=== PATIENT | female | born 2000 | race Caucasian/White ===

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

== ENCOUNTER 2019-01-10 09:28 | Emergency (ER) | payer OTHER ==
[~2019-01-10] VITALS: Ht 149.9 cm; Wt 64.3 kg
[~2019-01-10 09:28] MED LIST changes: -AMO500 PO; -AMOX1TAB10 PO; -HYDR-906 PO; -IBUP-1542 PO; -IBUP100O10 PO; -NAPR-688 PO; -NPH10OT RIGHT EAR; +PNV11TAB PO
[2019-01-10 09:38] VITALS: BP 116/69; PULSE 71; RESP 18; Ht 149.9 cm; Wt 64.3 kg
[2019-01-10] MEDS ORDERED: BACITRACIN 0.9 GM OINT TOP ONE (10:30)
[2019-01-10] MEDS ORDERED: LIDOCAINE 1% (MDV) 20 ML INJ SC ONE (11:00)
[2019-01-10] MEDS ORDERED: HYDR-4011 PO (12:00)
--- NOTE | 2019-01-10 16:11 | ERD ---
ER Documentation Chief Complaint Chief Complaint BILATERAL INGROWN NAIL FOR 3 DAYS. HPI 18-year-old female presents with complaint of bilateral groin times the past 3 days. States that the pain is made worse with palpation and ambulation. Denies any infections. Denies any treatments. Denies any fevers, chills. ROS All systems reviewed and are negative except as per history of present illness. Medications Home Meds Active Scripts Hydrocodone/Acetaminophen ([place] 5-325 Tablet) 1 Each Tablet, 1 TAB PO Q6H PRN for PAIN, #10 TAB Prov:CHERELLE MUELLER 01/10/19 Reported Medications [id number] ( 18) 1 Each Tablet, 1 TAB PO DAILY, TAB 10/03/18 Allergies Allergies: Coded Allergies: No Known Drug Allergies (Verified Allergy, Unknown, 05/20/16) PMhx/Soc History of Surgery: Yes (TONSILECTOMY ) Anesthesia Reaction: No Hx Neurological Disorder: No Hx Respiratory Disorders: No Hx Cardiac Disorders: No Hx Psychiatric Problems: No Hx Miscellaneous Medical Probl: Yes (peritonsilar abscess to R tonsil) Hx Alcohol Use: No Hx Substance Use: No Hx Tobacco Use: No FmHx Family History: No diabetes, No coronary disease, No other Physical Exam Vitals Vital Signs Date Temp Pulse Resp B/P (MAP) Pulse Ox O2 O2 Flow FiO2 Time Delivery Rate 01/10/19 97.7 71 18 116/69 99 09:38 (85) Physical Exam Const: No acute distress Head: Atraumatic Eyes: Normal Conjunctiva ENT: Normal External Ears, Nose and Mouth. Neck: Full range of motion. No meningismus. Resp: Clear to auscultation bilaterally Cardio: Regular rate and rhythm, no murmurs Abd: Soft, non tender, non distended. Normal bowel sounds Skin: Ingrown toenails noted bilaterally on the first digits of each foot. There is no erythema or signs of infection noted. Back: No midline or flank tenderness Ext: No cyanosis, or edema Neur: Awake and alert Psych: Normal Mood and Affect Results 24 hrs Current Medications Medications Dose Sig/Gigi Start Time Status Last (Trade) Ordered Route PRN Stop Time Admin Dose Reason Admin Bacitracin 1 applic ONCE ONCE 01/10/19 DC 01/10/19 (Bacitracin TOP 10:30 10:37 Oint (Ud)) 01/10/19 10:31 Lidocaine 20 ml ONCE ONCE 01/10/19 DC (Xylocaine SC 11:00 1% (Mdv) 20 01/10/19 11:01 ml) Procedures/MDM Toenail Removal by me: Anesthesia: 1% lidocaine Digital Block Location: First digit bilaterally Technique: from nail bed, vertical split, twisting towards remaining nail. Packing: Non-adherent dressing applied Complications: None Recommend bid dressing changes and warm water soaks. MDM: Toenails were removed bilaterally with above technique. Patient not exhibiting signs of infection therefore antibiotics were not necessary. I have low suspicion for acute space infection, cellulitis, or any other emergent condition. At this time, patient is stable for discharge and outpatient management. I have instructed the patient to follow-up with his/her primary care physician in 1-2 days. I have discussed with the patient the possibility of needing to see a specialist for further workup and imaging studies if symptoms persist. I have instructed the patient to promptly return to the ER for any new or worsening symptoms including but not limited to increased pain, fever, nausea, vomiting, weakness or LOC. The patient and/or family expressed understanding of and agreement with this plan. All questions were answered. Home care instructions were provided. [Communication with patient both during the exam and instructions for discharge were performed with using a filling hauler . Patient gave verbal confirmation to the practitioner, through the filling hauler, that they understood everythign that was being said to them.] DISCLAIMER: Inadvertent spelling and grammatical errors are likely due to EHR/dictation software use and do not reflect on the overall quality of patient care. Also, please note that the electronic time recorded on this note does not necessarily reflect the actual time of the patient encounter. Departure Diagnosis: Primary Impression: Ingrown toenail Condition: Stable Patient Instructions: Understanding Ingrown Toenails, Ingrown Toenail, Excised Referrals: [facility] YOU HAVE RECEIVED A MEDICAL SCREENING EXAM AND THE RESULTS INDICATE THAT YOU DO NOT HAVE A CONDITION THAT REQUIRES URGENT TREATMENT IN THE EMERGENCY DEPARTMENT. FURTHER EVALUATION AND TREATMENT OF YOUR CONDITION CAN WAIT UNTIL YOU ARE SEEN IN YOUR DOCTORS OFFICE WITHIN THE NEXT 1-2 DAYS. IT IS YOUR RESPONSIBILITY TO MAKE AN APPOINTMENT FOR FOLOW-UP CARE. IF YOU HAVE A PRIMARY DOCTOR --you should call your primary doctor and schedule an appointment IF YOU DO NOT HAVE A PRIMARY DOCTOR YOU CAN CALL OUR PHYSICIAN REFERRAL HOTLINE AT IF YOU CAN NOT AFFORD TO SEE A PHYSICIAN YOU CAN CHOSE FROM THE FOLLOWING [facility] [address] [facility] [address] [facility] [address] [facility] [address] [facility] [address] [facility] [facility]. [address] Additional Instructions: FOLLOW UP WITH YOUR PRIMARY CARE PHYSICIAN TOMORROW.Return to this facility if you are not improving as expected. CHERELLE MUELLER Jan 10, 2019 16:11
== END 2019-01-10 12:11 | disposition home or self-care (01) ==
LOC: FTE 09:28
DX: L60.0 Ingrowing nail (principal)
CPT/HCPCS: 11750; L3260; Z7502; Z7610

== ENCOUNTER 2019-03-02 11:54 | Emergency (ER) | payer OTHER ==
[~2019-03-02] VITALS: Wt 72.0 kg
[~2019-03-02 11:54] MED LIST changes: +CIPR500T4 PO; +HYDR-4011 PO; +NAPR-985 PO
[2019-03-02] MEDS ORDERED: morphine 2 MG INJ IV STA ×2 (12:19→14:05)
[2019-03-02] MEDS ORDERED: SOD CHLORIDE 0.9% 1,000 ML IV STA (12:19)
[2019-03-02] MEDS ORDERED: ONDANSETRON 4 MG INJ IV STA (12:19)
--- NOTE | 2019-03-02 12:35 | ERD ---
ER Documentation Chief Complaint Chief Complaint DYSURIA SINCE YESTERDAY HPI 18-year-old female, previously healthy, presents to the emergency department, complaining of right lower quadrant abdominal pain, associated with dysuria, n ausea, fever, chills and general malaise. LMP 03/01/2019, G1, P1. Last p.o.>8h ROS All systems reviewed and are negative except as per history of present illness. Medications Home Meds Active Scripts Hydrocodone/Acetaminophen ([place] 5-325 Tablet) 1 Each Tablet, 1 TAB PO Q6H PRN for PAIN, #10 TAB Prov:SHAGUFTA BENNETT MD 03/02/19 Ciprofloxacin Hcl* (Ciprofloxacin Hcl*) 500 Mg Tablet, 500 MG PO BID for 7 Days, TAB Prov:SHAGUFTA BENNETT MD 03/02/19 Hydrocodone/Acetaminophen ([place] 5-325 Tablet) 1 Each Tablet, 1 TAB PO Q6H PRN for PAIN, #10 TAB Prov:CHERELLE MUELLER 01/10/19 Reported Medications [id number] ( 18) 1 Each Tablet, 1 TAB PO DAILY, TAB 10/03/18 Allergies Allergies: Coded Allergies: No Known Drug Allergies (Verified Allergy, Unknown, 05/20/16) PMhx/Soc History of Surgery: Yes (TONSILECTOMY ) Anesthesia Reaction: No Hx Neurological Disorder: No Hx Respiratory Disorders: No Hx Cardiac Disorders: No Hx Psychiatric Problems: No Hx Miscellaneous Medical Probl: No Hx Alcohol Use: No Hx Substance Use: No Hx Tobacco Use: No Smoking Status: Never smoker FmHx Family History: No diabetes, No coronary disease Physical Exam Vitals Vital Signs Date Temp Pulse Resp B/P (MAP) Pulse Ox O2 O2 Flow FiO2 Time Delivery Rate 03/02/19 99.2 103 18 107/59 95 Room Air 14:51 (75) 03/02/19 100.8 132 18 123/75 99 11:57 (91) Physical Exam Patient alert, oriented, vital signs stable. HEAD: Normocephalic, atraumatic. EYES: PERRLA, EOMI, Sclera and conjunctiva appear normal. NOSE: Clear and patent nostrils. EARS: Canals clear, tympanic membranes WNL. MOUTH: normal lips and tongue, no oral lesions. THROAT: Normal oropharynx, no tonsillar exudates. NECK: Supple, No lymphadenopathy. Full ROM without pain or tenderness. HEART: RRR, no rubs, murmurs, clicks or gallops. LUNGS: Clear to auscultation. ABDOMEN: Guarded,, tender to palpation in the right lower quadrant,? McBurney sign. without masses or hepatosplenomegaly. EXTREMITIES: No edema bilaterally. BACK: Full ROM, no deformity, normal back exam NEURO: Cranial nerves grossly intact, no motor or sensory deficit SKIN: No rashes, no petechia. Result Diagram: 03/02/19 1229 03/02/19 1229 Results 24 hrs Laboratory Tests Test 03/02/19 12:29 03/02/19 12:36 White Blood Count 20.5 10^3/ul Red Blood Count 4.45 10^6/ul Hemoglobin 14.1 g/dl Hematocrit 41.1 % Mean Corpuscular Volume 92.4 fl Mean Corpuscular Hemoglobin 31.7 pg Mean Corpuscular Hemoglobin Concent 34.3 g/dl Red Cell Distribution Width 11.3 % Platelet Count 249 10^3/UL Mean Platelet Volume 9.3 fl Immature Granulocytes % 0.800 % Neutrophils % 89.0 % Lymphocytes % 4.2 % Monocytes % 5.6 % Eosinophils % 0.0 % Basophils % 0.4 % Nucleated Red Blood Cells % 0.0 /100WBC Immature Granulocytes # 0.160 10^3/ul Neutrophils # 18.3 10^3/ul Lymphocytes # 0.9 10^3/ul Monocytes # 1.2 10^3/ul Eosinophils # 0.0 10^3/ul Basophils # 0.1 10^3/ul Nucleated Red Blood Cells # 0.0 10^3/ul Urine Color YELLOW Urine Clarity SLIGHTLY CLOUDY Urine pH 6.0 Urine Specific [place] 1.009 Urine Ketones 1+ mg/dL Urine Nitrite POSITIVE mg/dL Urine Bilirubin NEGATIVE mg/dL Urine Urobilinogen 2+ mg/dL Urine Leukocyte Esterase 3+ Antonio/ul Urine Microscopic RBC 1 /HPF Urine Microscopic WBC > 182 /HPF Urine Squamous Epithelial Cells FEW /HPF Urine Bacteria FEW /HPF Urine Hemoglobin 1+ mg/dL Urine Glucose NEGATIVE mg/dL Urine Total Protein 2+ mg/dl Sodium Level 134 mmol/L Potassium Level 3.6 mmol/L Chloride Level 96 mmol/L Carbon Dioxide Level 26 mmol/L Anion Gap 12 Blood Urea Nitrogen 11 mg/dl Creatinine 0.95 mg/dl Est Glomerular Filtrat Rate mL/min > 60 mL/min Glucose Level 134 mg/dl Calcium Level 9.2 mg/dl Total Bilirubin 1.2 mg/dl Direct Bilirubin 0.00 mg/dl Indirect Bilirubin 1.2 mg/dl Aspartate Amino Transf (AST/SGOT) 30 IU/L Alanine Aminotransferase (ALT/SGPT) 39 IU/L Alkaline Phosphatase 96 IU/L Total Protein 9.0 g/dl Albumin 4.5 g/dl Globulin 4.50 g/dl Albumin/Globulin Ratio 1.00 Lipase 30 U/L POC Beta HCG, Qualitative NEGATIVE Current Medications Medications Dose Sig/Gigi Start Time Status Last (Trade) Ordered Route PRN Stop Time Admin Dose Reason Admin Sodium 1,000 ml @ Q1H STAT 03/02/19 DC 03/02/19 Chloride 1,000 mls/hr IV 12:19 12:33 03/02/19 13:18 Morphine 2 mg ONCE STAT 03/02/19 DC 03/02/19 Sulfate IV 12:19 12:32 (morphine) 03/02/19 12:22 Ondansetron 4 mg ONCE STAT 03/02/19 DC 03/02/19 HCl (Zofran IV 12:19 12:32 Inj) 03/02/19 12:22 Piperacillin 100 ml @ ONCE ONCE 03/02/19 DC 03/02/19 Sod/ 200 mls/hr IVPB 13:00 13:08 Tazobactam 03/02/19 13:29 Sod Sodium 1,000 ml @ Q1H ONCE 03/02/19 DC 03/02/19 Chloride 1,000 mls/hr IV 14:30 14:15 03/02/19 15:29 Ketorolac 15 mg ONCE STAT 03/02/19 DC 03/02/19 Tromethamine IV 14:05 14:14 (Toradol) 03/02/19 14:10 Morphine 2 mg ONCE STAT 03/02/19 DC 03/02/19 Sulfate IV 14:05 14:14 (morphine) 03/02/19 14:10 Patient: MADHAV GRAF : 2000 Age: 18 Sex: F MR #: [id number] DOS: 03/02/19 1219 Ordering MD: SHAGUFTA BENNETT MD Location: [facility] Room/Bed: PROCEDURE: CT abdomen and pelvis without contrast. CLINICAL INDICATION: Abdominal pain TECHNIQUE: CT scan of the abdomen and pelvis without contrast was performed on the [employer] volumetric [address] scanner. The patient was scanned without intravenous contrast. 3-D coronal reformatted images were obtained from the axial source images. CTDI: 10.2 mGy DLP: 604 mGy-cm DICOM images are available. One or more of the following dose reduction techniques were utilized: 1.) Automated exposure control 2.) Adjustment of the mA +/- kV according to patient's size 3.) Use of iterative reconstruction technique. COMPARISON: None. FINDINGS: Evaluation of solid abdominal visceral organs is limited without intravenous contrast. Limited evaluation of the lung bases are clear. No pleural effusion. The heart is normal in size. The liver is enlarged. Diffuse hepatic steatosis. No focal liver lesions are seen although evaluation is limited without intravenous contrast. The unenhanced spleen, bilateral adrenal glands, pancreas, and gallbladder are normal-appearing. The unenhanced left kidney is normal-appearing without nephrolithiasis. The right kidney is diffusely enlarged with perinephric fat stranding and fluid particularly about its lower pole. Though renal parenchyma is inadequately evaluated without intravenous contrast. No radiopaque urolithiasis is seen. No right-sided hydronephrosis is seen. Urinary bladder is decompressed though grossly normal. There are uterus is grossly normal. The small and large bowel are thin-walled and nondilated without evidence for obstruction. No intra-abdominal fluid collections, free air, nor abdominal pelvic adenopathy by imaging size criteria. Normal appendix. No suspicious osseous lesions. IMPRESSION: Perinephric inflammatory fat stranding and fluid about the lower pole of the right kidney without associated nephrolithiasis nor hydronephrosis is most consistent with acute uncomplicated pyelonephritis. Evaluation of the renal parenchyma is limited however without intravenous contrast. No perinephric fluid collections are seen to suggest an abscess. Enlarged fatty liver. Procedures/MDM Differential diagnosis include but not limited to: UTI, colitis, gastroenteritis, kidney stones, irritable bowel syndrome, inflammatory bowel syndrome, malabsorption syndrome, cholelithiasis, food intolerance, medication side effect, pancreatitis, diverticulitis, bowel obstruction. Low suspicion for acute abdomen Physical examination and clinical presentation consistent most likely with uncomplicated pyelonephritis During the ED course the patient remained stable, no new complaints. The patient received treatment with IV medications presenting overall improvement of the symptoms. Treatment options like inpatient admission, results and clinical impression discussed with patient, who at this time, she prefers to be managed outpatient. The patient is stable to be treated outpatient and will be discharged home, some side effects of prescribed medications (headache, rash, nausea, vomiting, diarrhea, drowsiness, habituation, bleeding, hypertension, interactions with other medications) were reviewed. The patient was instructed to follow up with the primary care provider in the next 48h. If symptoms persist, worsen or new symptoms develop, then patient should return to the ED immediately. Instructions explained and given directly by me to the patient with acknowledgment and demonstrated understanding. Disclaimer: Inadvertent spelling and grammatical errors are likely due to EHR/dictation software use and do not reflect on the overall quality of patient care. Also, please note that the electronic time recorded on this note does not necessarily reflect the actual time of the patient encounter. Departure Diagnosis: Primary Impression: Pyelonephritis Condition: Stable Patient Instructions: Understanding Urinary Tract Infections (UTIs) Additional Instructions: Thank you very much for allowing us to participate in your care. Your health and safety is our top priority at [facility]. The evaluation in the emergency department has been done to rule out an acute emergency. Chronic, [id number] conditions may have not been evaluated; therefore, you need to follow up with a primary care provider in the next 48h. If symptoms persist, worsen or new symptoms develop, then patient should return to the ED immediately. Call your primary care doctor TOMORROW for an appointment during the next 2-4 days and bring all the information provided. Have prescriptions filled and follow precisely the directions on the label. If the symptoms get worse and your provider is unavailable, return to the Emergency Department immediately. SHAGUFTA BENNETT MD Mar 02, 2019 12:35
[2019-03-02] MEDS ORDERED: PIPER-TAZO 3.375 GM IV (PMX) 100 ML IVPB ONE (13:00)
[2019-03-02] MEDS ORDERED: KETOROLAC 15 MG INJ IV STA (14:05)
[2019-03-02] MEDS ORDERED: SOD CHLORIDE 0.9% 1,000 ML IV ONE (14:30)
[2019-03-02 14:51] VITALS: BP 107/59; PULSE 103; RESP 18
== END 2019-03-02 15:56 | disposition home or self-care (01) ==
LOC: FTE 11:54
DX: N10 Acute pyelonephritis (principal)
CPT/HCPCS: 36415; 74176; 80053; 81001; 81025; 83690; 85025; 87086; 96361; 96365; 96375; 96376; J1885; J2270; J2405; J2543; J7030; Z7502

== ENCOUNTER 2019-03-05 18:08 | Emergency (ER) | payer OTHER ==
[~2019-03-05] VITALS: Ht 152.4 cm; Wt 63.8 kg
[2019-03-05 18:12] VITALS: Ht 152.4 cm; Wt 63.8 kg
[2019-03-05 21:05] VITALS: BP 108/73; PULSE 73; RESP 18
== END 2019-03-05 21:06 | disposition home or self-care (01) ==
LOC: FTE 18:08
DX: M54.6 Pain in thoracic spine (principal)
CPT/HCPCS: 80048; 81001; 81025; 85025; 87086; J1885; J2405; J7030; Z7610; 36415; 96374; 96375